=== PATIENT | female | born 1960 | race Two or more races ===

== ENCOUNTER → 2017-01-15 | Outpatient (CLI) | payer OTHER ==
--- NOTE | 2017-01-15 08:45 | REPMRS ---
Patient History The patient states she had a clinical breast exam in 2016. Patient is postmenopausal. Family history of unknown cancer in paternal grandfather at age 50 or over. Took estrogen for 5 years. Digital Mammo Screening Bilat: January 15, 2017 - Exam #: [id number] Bilateral CC and MLO view(s) were taken. Technologist: Fátima Segura, Technologist Prior study comparison: January 15, 2016, right breast digital mammo diagnostic unilateral performed at [facility]. December 20, 2015, bilateral digital mammo screening bilat performed at [facility]. FINDINGS: There are scattered fibroglandular densities. There has been no change in the appearance of the mammogram from the prior studies. There is a mild amount of residual fibroglandular tissue which is fairly symmetric. There is no interval development of dominant mass, architectural distortion, or clustered microcalcification suggestive of malignancy. ASSESSMENT: BI-RADS/ACR category 1 mammogram. Negative. Recommendation Routine screening mammogram in 1 year (for women over age 40). This mammogram was interpreted with the aid of an FDA-approved computer-aided dectection system. Electronically Signed By: Jens Barnes MD 01/15/17 0845
== END ==
LOC: M RAD 07:46
PROVIDERS: ATTEND Family Medicine
DX: Z12.31 Encounter for screening mammogram for malignant neoplasm of breast (principal)

== ENCOUNTER → 2018-01-19 | Outpatient (CLI) | payer OTHER | LOC: M RAD 08:53 | DX: Z12.31 Encounter for screening mammogram for malignant neoplasm of breast (principal) | CPT/HCPCS: 77067 ==

== ENCOUNTER 2020-03-13 11:49 | Emergency (ER) | payer OTHER ==
[~2020-03-13] VITALS: Ht 149.9 cm; Wt 70.5 kg
[2020-03-13] MEDS ORDERED: NITROGLYCERIN 0.4 MG SUBL TABLET SL PRN (12:15)
[2020-03-13] MEDS ORDERED: ASPIRIN 81 MG CHEW TABLET PO ONE (12:15)
[2020-03-13 12:21] LABS: BASO % 0.2 % (0.0-1.0); EOS % 0.2 % (0.0-3.0); HEMATOCRIT 36.7 % (36.0-47.0); HEMOGLOBIN 11.6 g/dl (12.0-15.5); LYMPH # 1.9 10^3/uL (1.5-5.0); LYMPH % 29.9 % (24.0-44.0); MEAN CORPUSCULAR HEMOGLOBIN 28.4 pg (27.0-33.0); MEAN CORPUSCULAR HGB CONC 31.6 g/dl (32.0-36.5); MEAN CORPUSCULAR VOLUME 89.7 fl (80.0-96.0); MONO # 0.6 10^3/uL (0.0-0.8); MONO % 9.7 % (0.0-5.0); NEUTROPHILS # 3.8 10^3/uL (1.5-8.5); NEUTROPHILS % 59.5 % (36.0-66.0); PLATELET COUNT, AUTOMATED 317 10^3/uL (150-450); RED BLOOD COUNT 4.09 10^6/uL (4.00-5.40); WHITE BLOOD COUNT 6.4 10^3/uL (4.0-10.0)
[2020-03-13 12:42] LABS: INR 0.9; PROTHROMBIN TIME 12.3 SECONDS (12.5-14.3)
[2020-03-13 12:44] LABS: D-DIMER QUANT 465.76 ng/ml (<500)
[2020-03-13 12:58] LABS: ALBUMIN 3.7 GM/DL (3.2-5.2); ALT/SGPT 26 U/L (12-78); BILIRUBIN,DIRECT < 0.1 MG/DL (0.0-0.2); BILIRUBIN,TOTAL 0.1 MG/DL (0.2-1.0); BLOOD UREA NITROGEN 17 MG/DL (7-18); CALCIUM LEVEL 9.4 MG/DL (8.8-10.2); CARBON DIOXIDE LEVEL 28 MEQ/L (21-32); CHLORIDE LEVEL 106 MEQ/L (98-107); CK-MB VALUE MASS 1.7 NG/ML (<3.6); CPK CREATINE PHOSPHOKINASE 127 U/L (26-192); CREATININE FOR GFR 0.81 MG/DL (0.55-1.30); GLOMERULAR FILTRATION RATE > 60.0 (>45); GLUCOSE, FASTING 93 MG/DL (70-100); LIPASE 153 U/L (73-393); MB/CK RELATIVE INDEX 1.34 (< OR =4); POTASSIUM SERUM 4.9 MEQ/L (3.5-5.1); SODIUM LEVEL 138 MEQ/L (136-145); TOTAL PROTEIN 7.5 GM/DL (6.4-8.2); TROPONIN I < 0.02 NG/ML (< 0.10)
--- NOTE | 2020-03-13 13:17 | REP ---
INDICATION: CHEST PAIN. COMPARISON: No comparison study. TECHNIQUE: Portable upright AP chest radiograph. FINDINGS: There is bibasilar linear opacity pattern consistent with platelike atelectasis, right greater than left. No definite infiltrate. Pleural angles are sharp. Heart size is normal. Monitoring electrodes are seen. The pulmonary vasculature is not increased. No acute bony abnormality.. IMPRESSION: Bibasilar platelike atelectasis, right greater than left. Otherwise no acute disease.. <Electronically signed by Dami Hobbs > 03/13/20 [id number]
[2020-03-13 17:54] VITALS: BP 123/60
[2020-03-13 18:30] LABS: CK-MB VALUE MASS 1.6 NG/ML (<3.6); CPK CREATINE PHOSPHOKINASE 64 U/L (26-192); TROPONIN I < 0.02 NG/ML (< 0.10)
--- NOTE | 2020-03-14 13:18 | ECGEPIP ---
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
--- NOTE | 2020-03-14 13:31 | ECGEPIP ---
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
== END 2020-03-13 19:28 | disposition home or self-care (01) ==
LOC: M ED 11:49
DX: R07.9 Chest pain, unspecified (principal); E78.5 Hyperlipidemia, unspecified; F17.200 Nicotine dependence, unspecified, uncomplicated; Z88.2 Allergy status to sulfonamides

== ENCOUNTER 2020-05-27 12:21 | Emergency (ER) | payer OTHER ==
[~2020-05-27] VITALS: Ht 149.9 cm; Wt 68.2 kg
--- NOTE | 2020-05-27 13:26 | REP ---
INDICATION: PAIN WITH MOVEMENT COMPARISON: None. TECHNIQUE: AP, lateral, bilateral oblique views. FINDINGS: Soft tissue swelling. No acute fracture or dislocation. Degenerative changes noted. Ankle mortise intact. IMPRESSION: Swelling. No obvious acute fracture. <Electronically signed by Kalin Davila > 05/27/20 [id number]
[2020-05-27] MEDS ORDERED: KETOROLAC TROMETHAMINE 10 MG TAB PO ONE (13:55)
[2020-05-27 14:15] VITALS: BP 130/82
== END 2020-05-27 14:25 | disposition home or self-care (01) ==
LOC: M ED 12:21
DX: S93.401A Sprain of unspecified ligament of right ankle, initial encounter (principal); X50.0XXA Overexertion from strenuous movement or load, initial encounter; Y92.830 Public park as the place of occurrence of the external cause; Y93.K1 Activity, walking an animal; Y99.9 Unspecified external cause status; J44.9 Chronic obstructive pulmonary disease, unspecified; F17.200 Nicotine dependence, unspecified, uncomplicated; Z88.2 Allergy status to sulfonamides

== ENCOUNTER 2020-12-05 19:01 | Emergency (ER) | payer OTHER ==
[~2020-12-05] VITALS: Ht 147.3 cm; Wt 66.5 kg
[2020-12-05] MEDS ORDERED: EFFE150C2 PO (19:16)
[2020-12-05] MEDS ORDERED: VALA1TAB5 PO (19:16)
[2020-12-05] MEDS ORDERED: IBUP80TA PO (19:16)
[2020-12-05] MEDS ORDERED: GABA600T4 PO (19:16)
[2020-12-05] MEDS ORDERED: PREM0.3T2 PO (19:16)
[2020-12-05] MEDS ORDERED: CYCL5TAB PO (19:16)
[2020-12-05] MEDS ORDERED: LIDO1PAD TOP (19:16)
[2020-12-05] MEDS ORDERED: DICL1GEL3 TOP (19:16)
--- NOTE | 2020-12-05 20:07 | REP ---
INDICATION: CHEST PAIN. COMPARISON: 03/13/2020 FINDINGS: The technique utilized in obtaining the radiograph has magnified the cardiac silhouette and accentuated the interstitial markings. There is no significant change compared to the prior exam. Chronic bibasilar opacities are again noted consistent with either chronic platelike subsegmental atelectatic change and/or fibrotic change. No acute patchy parenchymal opacities or pleural effusions have developed. Mild cardiomegaly accentuated by technique is suspected. There is no change in the osseous structures. IMPRESSION: No significant change from the prior exam. No evidence of acute cardiopulmonary disease. <Electronically signed by Semaj Marshall > 12/05/202003
[2020-12-05 20:27] LABS: BASO % 0.1 % (0.0-1.0); EOS % 0.1 % (0.0-3.0); HEMATOCRIT 33.5 % (36.0-47.0); HEMOGLOBIN 11.4 g/dl (12.0-15.5); LYMPH # 2.8 10^3/uL (1.5-5.0); LYMPH % 25.4 % (24.0-44.0); MEAN CORPUSCULAR HEMOGLOBIN 29.4 pg (27.0-33.0); MEAN CORPUSCULAR VOLUME 86.3 fl (80.0-96.0); MONO % 9.4 % (2.0-8.0); NEUTROPHILS % 64.5 % (36.0-66.0); PLATELET COUNT, AUTOMATED 356 10^3/uL (150-450); RED BLOOD COUNT 3.88 10^6/uL (4.00-5.40); WHITE BLOOD COUNT 10.9 10^3/uL (4.0-10.0)
[2020-12-05 21:03] LABS: ALBUMIN 3.5 GM/DL (3.2-5.2); ALT/SGPT 24 U/L (12-78); BILIRUBIN,DIRECT < 0.1 MG/DL (0.0-0.2); BILIRUBIN,TOTAL 0.2 MG/DL (0.2-1.0); BLOOD UREA NITROGEN 11 MG/DL (7-18); CALCIUM LEVEL 8.8 MG/DL (8.8-10.2); CARBON DIOXIDE LEVEL 25 MEQ/L (21-32); CHLORIDE LEVEL 107 MEQ/L (98-107); CK-MB VALUE MASS 2.2 NG/ML (<3.6); CPK CREATINE PHOSPHOKINASE 94 U/L (26-192); CREATININE FOR GFR 0.68 MG/DL (0.55-1.30); GLOMERULAR FILTRATION RATE > 60.0 (>45); GLUCOSE, FASTING 90 MG/DL (70-100); LIPASE 132 U/L (73-393); MB/CK RELATIVE INDEX 2.34 (< OR =4); POTASSIUM SERUM 4.1 MEQ/L (3.5-5.1); SODIUM LEVEL 139 MEQ/L (136-145); TOTAL PROTEIN 7.1 GM/DL (6.4-8.2); TROPONIN I < 0.02 NG/ML (< 0.10)
[2020-12-05 21:18] LABS: RSV AMPLIFICATION NEGATIVE (NEGATIVE)
[2020-12-05] MEDS ORDERED: ISOVUE-370 76% 100ML VIAL As Ordered ONE (21:20)
[2020-12-05] MEDS: MORPHINE 2 MG/ML 1ML VIAL (J2270) IV PRN ×2 (21:52→23:06)
--- NOTE | 2020-12-05 22:51 | REPVR ---
PROCEDURE INFORMATION: Exam: CTA Chest With Contrast Exam date and time: 12/05/2020 9:46 PM Age: 60 years old Clinical indication: Pain; Right-sided; Additional info: Chest pain right sided TECHNIQUE: Imaging protocol: Computed tomographic angiography of the chest with contrast. 3D rendering (Not supervised by radiologist): MIP and/or 3D reconstructed images were created by the technologist. Radiation optimization: All CT scans at this facility use at least one of these dose optimization techniques: automated exposure control; mA and/or kV adjustment per patient size (includes targeted exams where dose is matched to clinical indication); or iterative reconstruction. Contrast material: ISOVUE 370; Contrast volume: 75 ml; Contrast route: INTRAVENOUS (IV); COMPARISON: CR PORTABLE CHEST X-RAY 12/05/2020 7:29 PM FINDINGS: Pulmonary arteries: There is opacification of the pulmonary arteries with no evidence of pulmonary embolus. Aorta: There is opacification of the aorta which appears intact. Lungs: There is a hazy and streaky density in both lung bases which may be atelectasis and infiltrate. Pleural spaces: There is no evidence of pneumothorax or pleural effusion. Heart: The heart is normal in size and there is no evidence of pericardial effusion. Liver: There is a small cyst of the right lobe of the liver. Gallbladder and bile ducts: Common bile duct is normal in size. Bones/joints: Unremarkable. No acute fracture. Soft tissues: Unremarkable. IMPRESSION: 1. There is no evidence of pulmonary embolus. 2. Hazy and streaky atelectasis and infiltrate in the lung bases. Electronically signed by: Usman Cintron On 12/05/2020 22:51:21 PM
[2020-12-05] MEDS ORDERED: KETOROLAC 30 MG/ML 1ML VIAL IV ONE (23:00)
[2020-12-05] MEDS ORDERED: COMBIVENT RESPIMAT 100-20MCG INHALER 4GM INH ONE (23:20)
[2020-12-05] MEDS ORDERED: GI COCKTAIL 50ML BTL(HYOSCYAMINE/MAALOX/LIDOCAINE VISCOUS)(1:3:1) PO ONE (23:20)
[2020-12-06] MEDS ORDERED: KETO10TAB PO
[2020-12-06] MEDS ORDERED: NORCO 5/325MG TABLET (BULK FOR ED) PO ONE
[2020-12-06 00:32] VITALS: BP 118/74
--- NOTE | 2020-12-06 12:25 | ED PDOC ---
Post-Departure Follow-Up cta chest faxed to dr singleton for fu Yolie Castro MD Dec 06, 2020 12:25
--- NOTE | 2020-12-06 17:43 | ECGEPIP ---
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
== END 2020-12-06 00:38 | disposition home or self-care (01) ==
LOC: M ED 19:01
DX: R09.1 Pleurisy (principal); E78.5 Hyperlipidemia, unspecified; F17.200 Nicotine dependence, unspecified, uncomplicated; Z88.1 Allergy status to other antibiotic agents; Z88.2 Allergy status to sulfonamides
CPT/HCPCS: 71045; 71275; 80048; 80076; 82550; 82553; 83690; 84443; 84484; 85025; 85379; 87631; 93005; 93041; 94640; 94760; 96374; 96375; 96376; 99285; J1885; J2270; Q9967

== ENCOUNTER → 2022-07-28 | Outpatient (CLI) | payer OTHER ==
[~2022-07-28] MED LIST: CYCL5TAB PO; DICL1GEL3 TOP; EFFE150C2 PO; GABA600T4 PO; IBUP80TA PO; KETO10TAB PO; LIDO1PAD TOP; PREM0.3T2 PO; VALA1TAB5 PO
== END ==
LOC: M WHC 09:05
PROVIDERS: ATTEND Family Medicine
DX: Z12.31 Encounter for screening mammogram for malignant neoplasm of breast (principal); R92.8 Other abnormal and inconclusive findings on diagnostic imaging of breast; Z80.3 Family history of malignant neoplasm of breast
CPT/HCPCS: 77066; G0279

== ENCOUNTER → 2023-05-21 | Outpatient (CLI) | payer OTHER ==
[~2023-05-21] MED LIST changes: +DICL100G10 TOP; -DICL1GEL3 TOP; -EFFE150C2 PO; +EFFE150C3 PO
== END ==
LOC: M RAD 16:02
PROVIDERS: ATTEND Orthopaedic Surgery
DX: M25.512 Pain in left shoulder (principal); S46.012A Strain of muscle(s) and tendon(s) of the rotator cuff of left shoulder, initial encounter; X58.XXXA Exposure to other specified factors, initial encounter; Y92.9 Unspecified place or not applicable

== ENCOUNTER → 2023-06-03 | Outpatient (CLI) | payer OTHER | LOC: M SOG 10:11 | PROVIDERS: ATTEND Orthopaedic Surgery | DX: M75.112 Incomplete rotator cuff tear or rupture of left shoulder, not specified as traumatic (principal); Z98.1 Arthrodesis status; Z79.899 Other long term (current) drug therapy ==

== ENCOUNTER → 2023-06-03 | Outpatient (CLI) | payer OTHER ==
[2023-06-03 14:45] LABS: BASO % 0.3 % (0.0-1.0); EOS # 0.1 10^3/uL (0.0-0.5); EOS % 1.7 % (0.0-3.0); HEMATOCRIT 36.7 % (36.0-47.0); HEMOGLOBIN 12.1 g/dl (12.0-15.5); LYMPH # 2.3 10^3/uL (1.5-5.0); LYMPH % 30.1 % (24.0-44.0); MEAN CORPUSCULAR HEMOGLOBIN 29.7 pg (27.0-33.0); MONO # 0.6 10^3/uL (0.0-0.8); MONO % 8.4 % (2.0-8.0); NEUTROPHILS # 4.5 10^3/uL (1.5-8.5); NEUTROPHILS % 59.2 % (36.0-66.0); PLATELET COUNT, AUTOMATED 336 10^3/uL (150-450); RED BLOOD COUNT 4.08 10^6/uL (4.00-5.40); WHITE BLOOD COUNT 7.5 10^3/uL (4.0-10.0)
[2023-06-03 15:14] LABS: ALBUMIN 3.6 G/DL (3.2-5.2); ALKALINE PHOSPHATASE 73 U/L (46-116); ALT/SGPT 20 U/L (7.0-40); AST/SGOT 14 U/L (<34); BILIRUBIN,TOTAL 0.2 MG/DL (0.3-1.2); BLOOD UREA NITROGEN 13 MG/DL (9-23); CARBON DIOXIDE LEVEL 28 MMOL/L (20-31); CHLORIDE LEVEL 106 MMOL/L (98-107); CREATININE FOR GFR 0.67 MG/DL (0.55-1.30); GLOMERULAR FILTRATION RATE > 60.0 (>45); GLUCOSE, FASTING 86 MG/DL (74-106); POTASSIUM SERUM 5.1 MMOL/L (3.5-5.1); SODIUM LEVEL 138 MMOL/L (136-145); TOTAL PROTEIN 6.4 G/DL (5.7-8.2)
[2023-06-03 15:15] LABS: TOTAL 25(OH) VITAMIN D 39.6 NG/ML (20.0-100.0)
[2023-06-03 15:23] LABS: HEMOGLOBIN A1c 5.4 % (4.0-6.0)
== END ==
LOC: M PLALAB 10:47
PROVIDERS: ATTEND Orthopaedic Surgery
DX: M75.112 Incomplete rotator cuff tear or rupture of left shoulder, not specified as traumatic (principal)

== ENCOUNTER 2023-06-29 06:06 | Day surgery (SDC) | payer OTHER ==
[~2023-06-29] VITALS: Ht 149.9 cm; Wt 63.4 kg
[~2023-06-29 06:06] MED LIST changes: +ACET1TAB55 PO; +B-12100010 PO; +GABA-284 PO; +MAGN200T10 PO; +MELA3TAB12 PO; +OXYC-141 PO; +SENN-85 PO; +THERSOL3 OD; +VITA1CHW8 PO; +VITA500C24 PO
[2023-06-29] MEDS ORDERED: LIDOCAINE 1% SDV 5ML VIAL PN ONE (06:25)
[2023-06-29] MEDS ORDERED: ROPIvacaine 0.5% 30ML VIAL PN ONE (06:25)
[2023-06-29] MEDS ORDERED: dexAMETHasone 10MG/1ML VIAL PRES.FREE PN ONE (06:25)
[2023-06-29] MEDS: LR 1,000 ML IV SCH (07:03)
[2023-06-29] MEDS ORDERED: ONDANSETRON 4MG 2ML VIAL IV PRN ×2 (07:10→10:35)
[2023-06-29] MEDS ORDERED: HYDROMORPHONE HCL 0.5 MG/ 0.5 ML SYRINGE IV PRN ×2 (07:10→10:35)
[2023-06-29] MEDS ORDERED: oxyCODONE 5MG TAB PO PRN ×2 (07:10→10:35)
[2023-06-29] MEDS ORDERED: LR 1,000 ML IV SCH (07:10)
[2023-06-29] MEDS ORDERED: fentaNYL 100 MCG/2 ML INJECTION IV PRN ×2 (07:10→10:35)
[2023-06-29] MEDS ORDERED: ROCURONIUM BROMIDE 50MG/5ML VIAL As Ordered ONE (07:15)
[2023-06-29] MEDS ORDERED: LIDOCAINE 2% 100MG/5ML SDV (FOR ANES.) As Ordered ONE (07:15)
[2023-06-29] MEDS ORDERED: fentaNYL 100 MCG/2 ML INJECTION As Ordered ONE (07:15)
[2023-06-29] MEDS ORDERED: MIDAZOLAM INJ 2MG/2ML VIAL As Ordered ONE (07:15)
[2023-06-29] MEDS ORDERED: propofoL 200 MG/20 ML VIAL As Ordered ONE (07:15)
[2023-06-29] MEDS: MIDAZOLAM INJ 2MG/2ML VIAL IV PRN (07:24)
[2023-06-29] MEDS: fentaNYL 100 MCG/2 ML INJECTION IV PRN (07:24)
[2023-06-29] MEDS: ceFAZolin SOD 2 GM in IV 1 EA IV ONE (08:00)
[2023-06-29] MEDS ORDERED: PHENYLephrine 500MCG 5ML (100MCG/ML) SYRINGE As Ordered ONE (08:05)
[2023-06-29] MEDS: TRANEXAMIC ACID 100 MG/ML 10ML VIAL IV ONE (08:08)
[2023-06-29] MEDS: EPINEPHrine INJ 1 MG/ML 1ML AMP As Ordered ONE (08:10)
[2023-06-29] MEDS ORDERED: ONDANSETRON 4MG 2ML VIAL As Ordered ONE (08:24)
[2023-06-29] MEDS ORDERED: ACETAMINOPHEN 1000MG 100ML IV BAG As Ordered ONE (08:24)
[2023-06-29] MEDS ORDERED: KETOROLAC 60MG 2ML VIAL As Ordered ONE (08:24)
[2023-06-29] MEDS ORDERED: SUGAMMADEX SODIUM 500 MG/5 ML VIAL (BRIDION) As Ordered ONE (08:24)
[2023-06-29] MEDS: TRANEXAMIC ACID 100 MG/ML 10ML VIAL As Ordered ONE (09:06)
[2023-06-29] MEDS: LIDOCAINE 1% MDV 20ML VIAL As Ordered ONE (09:07)
[2023-06-29 11:58] VITALS: BP 109/59; TEMP 97.9; O2SAT 92
== END 2023-06-29 12:06 | disposition home or self-care (01) ==
LOC: M SDC 06:06
PROVIDERS: ATTEND Orthopaedic Surgery
DX: M75.122 Complete rotator cuff tear or rupture of left shoulder, not specified as traumatic (principal); M25.512 Pain in left shoulder; F12.10 Cannabis abuse, uncomplicated; F41.9 Anxiety disorder, unspecified; Z79.899 Other long term (current) drug therapy; Z88.2 Allergy status to sulfonamides; Z88.8 Allergy status to other drugs, medicaments and biological substances
CPT/HCPCS: 29827; 29828; 64415; C1713; J0131; J0171; J0690; J1100; J1885; J2250; J2371; J2405; J3010

== ENCOUNTER 2023-07-20 09:15 | Outpatient (RCR) | payer OTHER | END 2023-07-27 | LOC: M PT 09:15 | PROVIDERS: ATTEND Orthopaedic Surgery | DX: Z47.89 Encounter for other orthopedic aftercare (principal); Z98.890 Other specified postprocedural states ==

== ENCOUNTER → 2023-08-18 | Outpatient (CLI) | payer OTHER | LOC: M SOG 09:49 | PROVIDERS: ATTEND Orthopaedic Surgery | DX: M75.112 Incomplete rotator cuff tear or rupture of left shoulder, not specified as traumatic (principal) ==

== ENCOUNTER → 2023-08-27 | Outpatient (RCR) | payer OTHER | LOC: M PT 07-28 10:37 | PROVIDERS: ATTEND Orthopaedic Surgery | DX: Z51.89 Encounter for other specified aftercare (principal); Z98.890 Other specified postprocedural states ==

== ENCOUNTER → 2023-09-20 | Outpatient (REF) | payer OTHER ==
[2023-09-22 15:26] LABS: HPV APTIMA Not Detected (Not Detected)
== END ==
LOC: M SFHCWAGY 12:46
PROVIDERS: ATTEND Nurse Practitioner Family
DX: Z12.4 Encounter for screening for malignant neoplasm of cervix (principal); Z77.9 Other contact with and (suspected) exposures hazardous to health
CPT/HCPCS: 87624; G0123

== ENCOUNTER → 2023-09-20 | Outpatient (CLI) | payer OTHER | LOC: M WHC 08:04 | PROVIDERS: ATTEND Nurse Practitioner Family | DX: Z12.31 Encounter for screening mammogram for malignant neoplasm of breast (principal) ==

== ENCOUNTER 2023-09-22 09:44 | Outpatient (RCR) | payer OTHER | END 2023-09-26 | LOC: M PT 09:44 | PROVIDERS: ATTEND Orthopaedic Surgery | DX: Z51.89 Encounter for other specified aftercare (principal); Z98.890 Other specified postprocedural states ==

== ENCOUNTER 2023-10-25 09:54 | Outpatient (RCR) | payer OTHER | END 2023-10-27 | LOC: M PT 09:54 | PROVIDERS: ATTEND Orthopaedic Surgery | DX: Z47.89 Encounter for other orthopedic aftercare (principal) ==

== ENCOUNTER → 2024-03-03 | Outpatient (CLI) | payer OTHER ==
[~2024-03-03] MED LIST changes: -CYCL5TAB PO; +CYCL5TAB4 PO; +GABA-1490 PO; -GABA600T4 PO
== END ==
LOC: M SOG 13:15
PROVIDERS: ATTEND Orthopaedic Surgery
DX: M25.512 Pain in left shoulder (principal); Z47.89 Encounter for other orthopedic aftercare

== ENCOUNTER → 2025-01-22 | Outpatient (CLI) | payer OTHER ==
[2025-01-22 15:45] LABS: ALT/SGPT 22 U/L (7.0-40); AST/SGOT 21 U/L (<34); CHOLESTEROL LEVEL 214 MG/DL (<200); CHOLESTEROL RISK RATIO 3.50 (<5); LDL CHOLESTEROL 114.9 MG/DL (<100); NON-HDL-C 152.9 MG/DL; TRIGLYCERIDES LEVEL 190 MG/DL (<150)
== END ==
LOC: M LAB 14:22
PROVIDERS: ATTEND Physician Assistant
DX: N95.1 Menopausal and female climacteric states (principal); Z79.899 Other long term (current) drug therapy